=== PATIENT | male | born 1955 | race Caucasian/White ===

== ENCOUNTER 2016-10-24 22:33 | Emergency (ER) | payer BC ==
[2016-10-24] MEDS ORDERED: Aspirin 81 MG Tab.Chew ONE (22:42)
[2016-10-24] MEDS ORDERED: Metoprolol Tartrate 5 MG/5 ML SDV ONE ×3 (22:48→23:42)
[2016-10-24] MEDS ORDERED: Aspirin 81 MG Tab.Chew PO ONE (22:49)
[2016-10-24] MEDS ORDERED: Metoprolol Tartrate 5 MG in Sodium Chloride 0.9% 50 ML IV ONE (22:49)
--- NOTE | 2016-10-24 22:49 | EDM.PDOC ---
ED HPI GENERAL MEDICAL PROBLEM - General Stated Complaint: CHEST PAIN Time Seen by Provider: 10/24/16 22:33 Source of Information: Reports: Patient, RN Notes Reviewed, Significant Other ( Girlfriend) History Limitations: Reports: No Limitations - History of Present Illness INITIAL COMMENTS - FREE TEXT/NARRATIVE: The patient states that he developed retrosternal chest discomfort radiating across the left side of his chest to his left upper extremity, all the way down to the elbow, around 22:00. It was gradual in onset. He describes the character as similar to a pulled muscle. It is a discomfort, not a pain. He has not identified any modifiers, which is what prompted him to come to the ED. He had associated nausea, but no diaphoresis, dyspnea, or sense of impending doom. No prior similar symptoms. The ECG performed at the time of arrival demonstrated a STEMI in the inferior leads, with no reciprocal changes. The patient was given 4 baby aspirin, and I ordered 5 mg IV Lopressor. The patient's case was discussed with Dr. Real, Apprentice Architect at [facility], at 22:50. He recommended that we give the patient a 7500 unit bolus of heparin followed by the usual drip. The patient was to fly by helicopter to their facility. No TNKase unless the patient was delayed. Left Chest Pain Score (Numeric/FACES): 6 - Related Data Allergies Allergy/AdvReac Type Severity Reaction Status Date / Time No Known Allergies Allergy Verified 04/14/16 16:41 Past Medical History Cardiovascular History: Reports: High Cholesterol, Hypertension Gastrointestinal History: Reports: GERD Genitourinary History: Reports: Renal Calculus Endocrine/Metabolic History: Reports: Hypothyroidism - Past Surgical History HEENT Surgical History: Reports: Tonsillectomy Musculoskeletal Surgical History: Reports: ORIF (Left forearm) Social & Family History - Tobacco Use Smoking Status *Q: Never Smoker - Caffeine Use Caffeine Use: Reports: Coffee - Alcohol Use Alcohol Use History: Yes Alcohol Use Frequency: Socially - Recreational Drug Use Recreational Drug Use: No - Living Situation & Occupation Living situation: Reports: , with Significant Other (Girlfriend) 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) ED ROS GENERAL - Review of Systems Review Of Systems: See Below Constitutional: Reports: No Symptoms HEENT: Reports: No Symptoms Respiratory: Reports: No Symptoms Cardiovascular: Reports: No Symptoms Endocrine: Reports: No Symptoms GI/Abdominal: Reports: No Symptoms : Reports: No Symptoms Musculoskeletal: Reports: No Symptoms Skin: Reports: No Symptoms Neurological: Reports: No Symptoms Psychiatric: Reports: No Symptoms Hematologic/Lymphatic: Reports: No Symptoms Immunologic: Reports: No Symptoms ED EXAM, GENERAL - Physical Exam Exam: See Below Exam Limited By: No Limitations General Appearance: Alert, WD/WN, No Apparent Distress Eye Exam: Bilateral Eye: Normal Inspection Ears: Normal External Exam, Hearing Grossly Normal Nose: Normal Inspection, No Blood Throat/Mouth: Normal Inspection, Normal Lips, Normal Voice, No Airway Compromise Head: Atraumatic, Normocephalic Neck: Normal Inspection, Full Range of Motion Respiratory/Chest: No Respiratory Distress, Lungs Clear, Normal Breath Sounds, No Accessory Muscle Use, Chest Non-Tender Cardiovascular: Normal Peripheral Pulses, Regular Rate, Rhythm, No Gallop, No JVD, No Murmur, No Rub Peripheral Pulses: 4+: Radial (L), Radial (R) GI/Abdominal: Normal Bowel Sounds, Soft, Non-Tender, No Organomegaly, No Distention, No Abnormal Bruit, No Mass (Male) Exam: Deferred Rectal (Males) Exam: Deferred Back Exam: Normal Inspection, Full Range of Motion, NT Extremities: Normal Inspection, Normal Range of Motion, No Pedal Edema, Normal Capillary Refill Neurological: Alert, Oriented, Normal Cognition, No Motor/Sensory Deficits Psychiatric: Normal Affect Skin Exam: Warm, Dry, Intact, Normal Color, No Rash Lymphatic: No Adenopathy ED CARDIOLOGY PROCEDURES - Endotracheal Intubation Time of Intubation: 23:16 ET Intubation Indication: Airway Protection Preparation: Suction, Balloon Tested, BVM Set Up, Difficult Airway Equip Pre-Oxygenation: Assisted With BVM, 100% FiO2 Anesthesia Meds: Propofol Placement: Orotracheal, Cuffed, Uncomplicated Placement Cords Visualized: Yes, Grade 3 ETT Size In mm: 8.0 Number of Attempts: 1 Confirmed By: CO2 Indicator, Bilateral Breath Sounds, Chest Xray Tube Secured By: By RT EKG INTERPRETATION EKG Date: 10/24/16 Time: 22:35 Rhythm: NSR Rate (Beats/Min): 62 [place]: Normal P-Wave: Present QRS: Wide (Nonspecific intraventricular conduction delay) ST-T: Elevated (II, III, aVF) QT: Normal Comparison: NA - No Prior EKG EKG Interpretation Comments: Second ECG 10/24/2016 at 23:22 demonstrates normal sinus rhythm at 97 bpm. Inferior STEMI. Single PVC. Course - Vital Signs Last Recorded V/S: Last Vital Signs Temp 36.3 C 10/24/16 22:52 Pulse 58 L 10/24/16 22:52 Resp 14 10/24/16 22:52 BP 174/114 H 10/24/16 22:52 Pulse Ox 96 10/24/16 22:52 - Orders/Labs/Meds Orders: Active Orders 24 hr Category Date Time Status EKG Documentation Completion [RC] STAT Care 10/24/16 23:15 Active Chest 1V Frontal [CR] Stat Exams 10/24/16 22:40 Taken Chest 1V Frontal [CR] Stat Exams 10/24/16 23:10 Taken Labs: Laboratory Tests 10/24/16 10/24/16 10/24/16 Range/Units 22:40 22:40 22:40 WBC 9.20 H (4.23-9.07) K/mm3 RBC 4.68 (4.63-6.08) M/mm3 Hgb 15.0 (13.7-17.5) gm/L Hct 43.1 (40.1-51.0) % MCV 92.1 (79.0-92.2) fl MCH 32.1 (25.7-32.2) pg MCHC 34.8 (32.2-35.5) g/dl RDW Std Deviation 41.6 (35.1-43.9) fL Plt Count 202 (163-337) K/mm3 MPV 11.8 (9.4-12.3) fl Neutrophils % (Manual) 44 (40-60) % Band Neutrophils % 0 (0-10) % Lymphocytes % (Manual) 29 (20-40) % Atypical Lymphs % 16 % Monocytes % (Manual) 10 (2-10) % Eosinophils % (Manual) 1 (0.8-7.0) % Basophils % (Manual) 0 L (0.2-1.2) Platelet Estimate Adequate Plt Morphology Comment Normal Anisocytosis 1+ slight Microcytosis 1+ slight Macrocytosis 1+ slight RBC Morph Comment Abnormal PT 10.0 (8.0-13.0) SECONDS INR 0.92 APTT 22 (22-36) SECONDS D-Dimer, Quantitative 0.33 (0.19-0.59) mg/L Sodium 139 (136-145) mEq/L Potassium 3.3 L (3.5-5.1) mEq/L Chloride 102 (98-107) mEq/L Carbon Dioxide 31 (21-32) mEq/L Anion Gap 9.3 (5-15) BUN 17 (7-18) mg/dL Creatinine 1.3 (0.7-1.3) mg/dL Est Cr Clr Drug Dosing 66.32 mL/min Estimated GFR (MDRD) 56 (>60) mL/min BUN/Creatinine Ratio 13.1 L (14-18) Glucose 130 H (74-106) mg/dL Calcium 9.0 (8.5-10.1) mg/dL Total Bilirubin 0.6 (0.2-1.0) mg/dL AST 30 (15-37) U/L ALT 53 (16-63) U/L Alkaline Phosphatase 65 (46-116) U/L Troponin I < 0.017 (0.00-0.056) ng/mL B-Natriuretic Peptide (0-100) pg/mL Total Protein 7.8 (6.4-8.2) g/dl Albumin 4.0 (3.4-5.0) g/dl Globulin 3.8 gm/dL Albumin/Globulin Ratio 1.1 (1-2) // Range/Units 22:40 WBC (4.23-9.07) K/mm3 RBC (4.63-6.08) M/mm3 Hgb (13.7-17.5) gm/L Hct (40.1-51.0) % MCV (79.0-92.2) fl MCH (25.7-32.2) pg MCHC (32.2-35.5) g/dl RDW Std Deviation (35.1-43.9) fL Plt Count (163-337) K/mm3 MPV (9.4-12.3) fl Neutrophils % (Manual) (40-60) % Band Neutrophils % (0-10) % Lymphocytes % (Manual) (20-40) % Atypical Lymphs % % Monocytes % (Manual) (2-10) % Eosinophils % (Manual) (0.8-7.0) % Basophils % (Manual) (0.2-1.2) Platelet Estimate Plt Morphology Comment Anisocytosis Microcytosis Macrocytosis RBC Morph Comment PT (8.0-13.0) SECONDS INR APTT (22-36) SECONDS D-Dimer, Quantitative (0.19-0.59) mg/L Sodium (136-145) mEq/L Potassium (3.5-5.1) mEq/L Chloride (98-107) mEq/L Carbon Dioxide (21-32) mEq/L Anion Gap (5-15) BUN (7-18) mg/dL Creatinine (0.7-1.3) mg/dL Est Cr Clr Drug Dosing mL/min Estimated GFR (MDRD) (>60) mL/min BUN/Creatinine Ratio (14-18) Glucose (74-106) mg/dL Calcium (8.5-10.1) mg/dL Total Bilirubin (0.2-1.0) mg/dL AST (15-37) U/L ALT (16-63) U/L Alkaline Phosphatase (46-116) U/L Troponin I (0.00-0.056) ng/mL B-Natriuretic Peptide 16 (0-100) pg/mL Total Protein (6.4-8.2) g/dl Albumin (3.4-5.0) g/dl Globulin gm/dL Albumin/Globulin Ratio (1-2) Meds: Medications Discontinued Medications Generic Name Dose Route Start Last Admin Trade Name Freq PRN Reason Stop Dose Admin Aspirin Confirm 10/24/16 22:42 10/24/16 22:51 Aspirin Administered 10/24/16 22:43 Not Given Dose 324 mg .ROUTE .STK-MED ONE Aspirin 324 mg 10/24/16 22:49 Aspirin PO 10/24/16 22:50 ONETIME ONE Heparin Sodium (Porcine) Confirm 10/24/16 23:29 Heparin Sodium Administered 10/24/16 23:30 Dose 5,000 units .ROUTE .STK-MED ONE Heparin Sodium (Porcine) Confirm 10/24/16 23:30 Heparin Sodium Administered 10/24/16 23:31 Dose 5,000 units .ROUTE .STK-MED ONE Metoprolol Tartrate 5 mg/ 55 mls @ 100 mls/hr 10/24/16 22:49 Sodium Chloride IV 10/24/16 23:21 ONETIME ONE Sodium Chloride Confirm 10/24/16 22:52 Normal Saline Administered 10/24/16 22:53 Dose 1,000 mls @ as directed .ROUTE .STK-MED ONE Heparin Sodium/Dextrose Confirm 10/24/16 23:26 Heparin 25,000 Units In D5w 500 Ml Administered 10/24/16 23:27 Dose 500 mls @ as directed .ROUTE .STK-MED ONE Lorazepam Confirm 10/24/16 23:03 Ativan Administered 10/24/16 23:04 Dose 2 mg .ROUTE .STK-MED ONE Metoprolol Tartrate Confirm 10/24/16 22:48 Lopressor Administered 10/24/16 22:49 Dose 5 mg .ROUTE .STK-MED ONE Metoprolol Tartrate Confirm 10/24/16 23:42 Lopressor Administered 10/24/16 23:43 Dose 5 mg .ROUTE .STK-MED ONE Tenecteplase Confirm 10/24/16 22:51 Tnkase Administered 10/24/16 22:52 Dose 50 mg .ROUTE .STK-MED ONE - Radiology Interpretation Free Text/Narrative:: Portal chest radiograph is of limited quality. Tip of the ET tube appears to be approximately 2 cm above the levy. An OG tube tip is in the stomach via the esophagus. The cardiac silhouette is at the upper limits of normal. The mediastinum may be widened. Bilateral hilar fullness. Focal infiltrate cannot be excluded. Formal read per the Radiologist pending. - Re-Assessments/Exams Free Text/Narrative Re-Assessment/Exam: Immediately after my conversation with Dr. Real, a CODE BLUE was called on the patient. The patient developed ventricular fibrillation while his Lopressor was being given - he received only 2.5 mg before he coded. Chest compressions were started immediately. 1 mg of epinephrine was given. TNKase was ordered. The patient was defibrillated three times, 150 J, 200 J, and 200 J into normal sinus rhythm. He subsequently developed torsade de pointes. He was cardioverted with 150 J. A 2 g mag rider was ordered. The patient woke up and was restless. Ativan 1 mg was ordered. Amiodarone 300 mg bolus was started. The previously ordered T and K was given. Flight was present and indicated that they needed the patient to be intubated prior to transport. Propofol 40 mg was given IV with inadequate sedation, therefore an additional 100 mg was given, with adequate sedation. The patient was intubated with one attempt per [place]. MAC 3 blade. 8.0 ET tube to 21 cm at the incisors. An OG tube was placed. Proper placement of both tubes confirmed with CO2 detection and subsequent portable chest radiograph. Shortly after intubation, the patient became restless again. Versed and fentanyl drips were started per flight. Additional propofol 50 mg was given. A second ECG was performed. The previously ordered heparin bolus of 7500 units was given, followed by a heparin drip. The patient was given rocuronium. A Soto catheter was placed. An additional 5 mg Lopressor was given. The OG tube appear to be clogged, therefore was removed. The events were discussed with Dr. Real at 23:39. He requested only that flight contact [facility] with their ETA, once known. The patient left the ED with flight at 23:53. 10/25/16 02:23 Critical care time on this patient 60 minutes. Departure - Departure Time of Disposition: 23:53 Disposition: DC/Tfer to Acute Hospital 02 Reason for Transfer *Q: Primary PCI Indicated Condition: Critical Clinical Impression: ST elevation myocardial infarction (STEMI) of inferior wall, Ventricular fibrillation - My Orders Last 24 Hours: My Active Orders 10/24/16 22:40 Chest 1V Frontal [CR] Stat 10/24/16 23:10 Chest 1V Frontal [CR] Stat 10/24/16 23:15 EKG Documentation Completion [RC] STAT - Assessment/Plan Last 24 Hours: My Active Orders 10/24/16 22:40 Chest 1V Frontal [CR] Stat 10/24/16 23:10 Chest 1V Frontal [CR] Stat 10/24/16 23:15 EKG Documentation Completion [RC] STAT
[2016-10-24] MEDS ORDERED: Propofol 200 MG/20 ML SDV ONE ×2 (22:51→23:30)
[2016-10-24] MEDS ORDERED: Heparin Sodium 5,000 Units/ML Vial ONE ×4 (22:51→23:30)
[2016-10-24] MEDS ORDERED: Amiodarone/Dextrose,Iso-Osmotic 360 MG/200 ML Premix Bag ONE (22:51)
[2016-10-24] MEDS ORDERED: Tenecteplase 50 MG Kit ONE ×2 (22:51)
[2016-10-24] MEDS ORDERED: EPINEPHrine 1:10,000 1 MG/10 ML Syringe ONE (22:51)
[2016-10-24] MEDS ORDERED: Amiodarone 150 MG/3 ML SDV ONE (22:51)
[2016-10-24] MEDS ORDERED: Succinylcholine/Normal Saline 100 MG/5 ML Syringe ONE (22:51)
[2016-10-24] MEDS ORDERED: LORazepam 2 MG/ML MDV ONE ×2 (22:51→23:03)
[2016-10-24] MEDS ORDERED: Sodium Chloride 0.9% 1,000 ML IV ONE (22:52)
[2016-10-24] MEDS ORDERED: Sodium Chloride 0.9% 1,000 ML ONE (22:52)
[2016-10-24] MEDS ORDERED: Magnesium Sulfate/Water 100 ML IV ONE (22:52)
[2016-10-24 22:55] VITALS: BP 174/114
[2016-10-24] MEDS ORDERED: Heparin Sodium/D5W 500 ML ONE (23:26)
--- NOTE | 2016-10-25 10:11 | CR ---
Chest: Portable view of the chest was obtained. Comparison: Previous chest x-ray performed earlier on the same day (10:46 PM). Nasogastric tube is seen. Tip lies within the stomach antrum. Endotracheal tube is seen with tip lying at the level of the clavicles. Heart is within normal limits for portable technique. Upper mediastinum is accentuated and felt to be due to portable technique. Minimal atelectasis is seen within the left mid and lower lung. Lungs otherwise are clear. Impression: 1. Endotracheal tube and nasogastric tube felt to be satisfactory in position. 2. Other incidental findings as described above. Diagnostic code #3
--- NOTE | 2016-10-25 10:11 | CR ---
Chest: Portable view of the chest was obtained. Comparison: No previous chest x-ray. Heart size and mediastinum are within normal limits for portable technique. Lungs are clear. Bony structures are grossly intact. Impression: 1. Nothing acute is identified on portable chest x-ray. Diagnostic code #1
== END 2016-10-25 00:02 ==
LOC: JD.ED 22:33
DX: I21.19 ST elevation (STEMI) myocardial infarction involving other coronary artery of inferior wall (principal); R11.0 Nausea; I49.01 Ventricular fibrillation; E78.00 Pure hypercholesterolemia, unspecified; I10 Essential (primary) hypertension; K21.9 Gastro-esophageal reflux disease without esophagitis; E03.9 Hypothyroidism, unspecified; Z98.890 Other specified postprocedural states
CPT/HCPCS: 31500; 36415; 51702; 71010; 80053; 83880; 84484; 85025; 85379; 85610; 85730; 92950; 92960; 93005; 96365; 96368; 96375; 96376; 99291; J0171; J0282; J0330; J1644; J2060; J3101; J3475; J7040; J7050; J2704; J3490

== ENCOUNTER 2018-01-02 09:54 | Emergency (ER) | payer BC ==
--- NOTE | 2018-01-02 10:32 | EDM.PDOC ---
ED HPI GENERAL MEDICAL PROBLEM - General Chief Complaint: Neurological Problem Stated Complaint: DIZZINESS/NAUSEA Time Seen by Provider: 01/02/18 10:07 Source of Information: Reports: Patient, Family History Limitations: Reports: No Limitations - History of Present Illness INITIAL COMMENTS - FREE TEXT/NARRATIVE: 62-year-old male with a history of coronary artery disease prior AK requiring one stent in September 2016 presenting with a chief complaint of palpitations, lightheadedness, ROYAL and headache. Patient's symptoms started on Tuesday. At times he'll notice a racing heartbeat. He also becomes lightheaded. He believes he symptoms are provoked by exertion. He's had no associated chest pain. Patient 's symptoms with his last heart attack were similar in nature. Patient has no history of atrial fibrillation he is not currently anticoagulated. - Related Data Allergies Allergy/AdvReac Type Severity Reaction Status Date / Time No Known Allergies Allergy Verified 01/02/18 10:03 Home Meds: Home Meds Aspirin [[place] Aspirin] 81 mg PO DAILY 11/09/16 [History] Levothyroxine 112 mcg PO ACBREAKFAST 11/09/16 [History] atorvaSTATin [Lipitor] 40 mg PO ONETIME 11/09/16 [History] Clopidogrel [Plavix] 75 mg PO DAILY 11/30/16 [History] amLODIPine [Norvasc] 10 mg PO DAILY 12/02/16 [History] Lisinopril 40 mg PO DAILY 01/02/18 [History] Pantoprazole [ProTONIX] 40 mg PO DAILY 01/02/18 [History] Ubidecarenone [Coq-10] 100 mg PO DAILY 01/02/18 [History] Past Medical History Cardiovascular History: Reports: High Cholesterol, Hypertension, AK, Stents Other Cardiovascular History: 1 stent placed September 2016 Gastrointestinal History: Reports: GERD Genitourinary History: Reports: Renal Calculus Endocrine/Metabolic History: Reports: Hypothyroidism Other Endocrine/Metabolic History: unsure if hypo or hyper thyroidism - Past Surgical History HEENT Surgical History: Reports: Tonsillectomy Musculoskeletal Surgical History: Reports: ORIF Social & Family History - Tobacco Use Smoking Status *Q: Never Smoker - Caffeine Use Caffeine Use: Reports: Coffee - Alcohol Use Days Per Week of Alcohol Use: 2 Number of Drinks Per Day: 2 Total Drinks Per Week: 4 - Recreational Drug Use Recreational Drug Use: No - Living Situation & Occupation Living situation: Reports: , with Significant Other (Girlfriend) 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 Denies: Diaphoresis HEENT: Reports: No Symptoms Respiratory: Reports: Shortness of Breath Cardiovascular: Reports: Dyspnea on Exertion, Lightheadedness, Palpitations. Denies: Chest Pain GI/Abdominal: Reports: No Symptoms : Reports: No Symptoms Musculoskeletal: Reports: No Symptoms Skin: Reports: No Symptoms Neurological: Reports: Headache Psychiatric: Reports: No Symptoms ED EXAM, GENERAL - Physical Exam Exam: See Below Exam Limited By: No Limitations General Appearance: Alert, No Apparent Distress Head: Atraumatic, Normocephalic Respiratory/Chest: No Respiratory Distress, Lungs Clear, Normal Breath Sounds Cardiovascular: Other (Regular rate, irregularly irregular rhythm no murmurs rubs or gallops) GI/Abdominal: Soft, Non-Tender, Other (Abdomen is mildly distended with no tenderness to palpation no rebound or guarding) Back Exam: Normal Inspection, Full Range of Motion Extremities: Normal Inspection, Normal Range of Motion, Non-Tender, No Pedal Edema Neurological: Alert, Oriented, CN II-XII Intact, No Motor/Sensory Deficits Psychiatric: Normal Affect, Normal Mood Skin Exam: Warm, Dry, Intact EKG INTERPRETATION EKG Date: 01/02/18 Time: 10:13 Rhythm: A-Fib Rate (Beats/Min): 86 [place]: Normal P-Wave: Absent QRS: Normal ST-T: Normal QT: Normal Course - Vital Signs Last Recorded V/S: Last Vital Signs Temp 37.3 C 01/02/18 10:03 Pulse 95 01/02/18 10:03 Resp 18 01/02/18 10:03 BP 165/100 H 01/02/18 10:03 Pulse Ox 96 01/02/18 10:03 - Orders/Labs/Meds Orders: Active Orders 24 hr Category Date Time Status EKG Documentation Completion [RC] STAT Care 01/02/18 10:12 Active Chest 1V Frontal [CR] Stat Exams 01/02/18 10:12 Taken PTT,PARTIAL THROMBOPLSTIN TIME [COAG] Stat Lab 01/02/18 11:59 Ordered Heparin Sodium/D5W [Heparin 25,000 Units in D5W 500 ML] Med 01/02/18 12:00 Ordered 25,000 units in 500 ml IV TITRATE Medication Orders Heparin Sodium/Dextrose (Heparin 25,000 Units In D5w 500 Ml) 25,000 units in 500 mls @ 20 mls/hr IV TITRATE JOEY; Protocol Labs: Laboratory Tests 01/02/18 01/02/18 Range/Units 10:15 10:15 WBC 8.19 (4.23-9.07) K/mm3 RBC 5.19 (4.63-6.08) M/mm3 Hgb 16.0 (13.7-17.5) gm/L Hct 46.8 (40.1-51.0) % MCV 90.2 (79.0-92.2) fl MCH 30.8 (25.7-32.2) pg MCHC 34.2 (32.2-35.5) g/dl RDW Std Deviation 40.7 (35.1-43.9) fL Plt Count 151 L (163-337) K/mm3 MPV 11.8 (9.4-12.3) fl Neut % (Auto) 73.6 H (34.0-67.9) % Lymph % (Auto) 19.2 L (21.8-53.1) % [place] % (Auto) 6.1 (5.3-12.2) % Eos % (Auto) 0.4 L (0.8-7.0) Baso % (Auto) 0.6 (0.1-1.2) % Neut # (Auto) 6.03 H (1.78-5.38) K/mm3 Lymph # (Auto) 1.57 (1.32-3.57) K/mm3 [place] # (Auto) 0.50 (0.30-0.82) K/mm3 Eos # (Auto) 0.03 L (0.04-0.54) K/mm3 Baso # (Auto) 0.05 (0.01-0.08) K/mm3 Manual Slide Review Normal smear Sodium 137 (136-145) mEq/L Potassium 4.2 (3.5-5.1) mEq/L Chloride 101 (98-107) mEq/L Carbon Dioxide 29 (21-32) mEq/L Anion Gap 11.2 (5-15) BUN 13 (7-18) mg/dL Creatinine 1.3 (0.7-1.3) mg/dL Est Cr Clr Drug Dosing 64.67 mL/min Estimated GFR (MDRD) 56 (>60) mL/min BUN/Creatinine Ratio 10.0 L (14-18) Glucose 145 H (80-115) mg/dL Calcium 8.8 (8.5-10.1) mg/dL Total Bilirubin 1.3 H (0.2-1.0) mg/dL AST 26 (15-37) U/L ALT 46 (16-63) U/L Alkaline Phosphatase 63 (46-116) U/L Troponin I < 0.017 (0.00-0.056) ng/mL Total Protein 7.4 (6.4-8.2) g/dl Albumin 3.8 (3.4-5.0) g/dl Globulin 3.6 gm/dL Albumin/Globulin Ratio 1.1 (1-2) Meds: Medications Generic Name Dose Route Start Last Admin Trade Name Freq PRN Reason Stop Dose Admin Heparin Sodium/Dextrose 25,000 units in 500 mls @ 20 mls/hr 01/02/18 12:00 Heparin 25,000 Units In D5w 500 Ml IV TITRATE JOEY Protocol Discontinued Medications Generic Name Dose Route Start Last Admin Trade Name Freq PRN Reason Stop Dose Admin Heparin Sodium (Porcine) 7,000 units 01/02/18 11:59 Heparin Sodium IVPUSH 01/02/18 12:00 .BOLUS ONE - Re-Assessments/Exams Free Text/Narrative Re-Assessment/Exam: 01/02/18 10:32 62-year-old male history of AK with one stent presenting with palpitations, lightheadedness and some dyspnea with exertion. On initial evaluation the patient had normal vital signs. Physical exam was notable for an irregularly irregular pulse. EKG demonstrates no identifiable P waves consistent with atrial fibrillation. Patient states he has no history of this. He is not anticoagulated and is not on any rate or rhythm control medication. Patient's presentation today since similar to his prior presentation when he has AK. Patient Murmurs last stress test. Plantar now is to obtain a CMP, CBC, troponin and chest x-ray. Patient will likely need inpatient admission for provocative testing as well as new echocardiogram and needs to be started on anticoagulation. Free Text/Narrative Re-Assessment/Exam: 01/02/18 11:[address] Mc at [facility] who accepted the patient as transfer. Patient has [id number] Score of 2 making him moderate high risk for stroke, will initiate anti-coagulation here in the ED with heparin drip. Chest. 2009;137(2):263-72. doi: [email or web address]. Epub 2008Jan 16. Refining clinical risk stratification for predicting stroke and thromboembolism in atrial fibrillation using a novel risk factor-based approach: the euro heart survey on atrial fibrillation. Lip GY1, Nipedro R, Pisters R, Marvin DA, Crinohemi HJ. Furthermore, this patient has a HEART score of 6 making his risk of major adverse cardiac event 12-16.6% in the next 6 weeks. He requires admission for provocative testing and further risk stratification. Crit Pathw Cardiol. 2009;9(3):164-9. doi: 10.1097/[id number]. Chest pain in the emergency room: a multicenter validation of the HEART Score. Zoraida BE1, Fareed AJ, Ama JESENIA, Tomas TP, van eliazar Javed F, Tomas EG, Brendan SH, kellie Fowler RM, Anna PA. 01/02/18 12:12 At this time I feel the patient's symptoms are an anginal equivalent and the recent onset of them represent unstable angina. Departure - Departure Time of Disposition: 12:09 Disposition: DC/Tfer to Acute Hospital 02 Reason for Transfer *Q: Other (stress testing) Condition: Fair Clinical Impression: Unstable angina Atrial fibrillation Qualifiers: Atrial fibrillation type: unspecified Qualified Code(s): I48.91 - Unspecified atrial fibrillation Referrals: Jay Johnson MD [Primary Care Provider] - Forms: ED Department Discharge - My Orders Last 24 Hours: My Active Orders 01/02/18 10:12 EKG Documentation Completion [RC] STAT Chest 1V Frontal [CR] Stat 01/02/18 11:59 PTT,PARTIAL THROMBOPLSTIN TIME [COAG] Stat 01/02/18 12:00 Heparin Sodium/D5W [Heparin 25,000 Units in D5W 500 ML] 25,000 units in 500 ml IV TITRATE - Assessment/Plan Last 24 Hours: My Active Orders 01/02/18 10:12 EKG Documentation Completion [RC] STAT Chest 1V Frontal [CR] Stat 01/02/18 11:59 PTT,PARTIAL THROMBOPLSTIN TIME [COAG] Stat 01/02/18 12:00 Heparin Sodium/D5W [Heparin 25,000 Units in D5W 500 ML] 25,000 units in 500 ml IV TITRATE
[2018-01-02] MEDS ORDERED: Heparin Sodium 5,000 Units/ML Vial IVPUSH ONE ×2 (11:59→12:31)
[2018-01-02] MEDS ORDERED: Heparin Sodium/D5W 25,000 UNITS/500 ML BAG IV SCH (12:00)
[2018-01-02 13:09] VITALS: BP 153/109
--- NOTE | 2018-01-03 07:23 | CR ---
Chest: Portable view of the chest was obtained. Comparison: Prior chest x-ray 10/24/16. Heart size is within normal limits for portable technique. Tortuous thoracic aorta is seen. Lungs are clear with no acute parenchymal change. Bony structures are unremarkable. Impression: 1. Nothing acute is seen on portable chest x-ray. Diagnostic code #2
== END 2018-01-02 12:56 ==
LOC: JD.ED 09:54
DX: I48.91 Unspecified atrial fibrillation (principal); I20.0 Unstable angina; E03.9 Hypothyroidism, unspecified; I10 Essential (primary) hypertension; I25.2 Old myocardial infarction; Z79.82 Long term (current) use of aspirin; Z79.899 Other long term (current) drug therapy; E78.00 Pure hypercholesterolemia, unspecified
CPT/HCPCS: 36415; 71045; 80053; 84484; 85025; 85730; 93005; 96365; 96376; 99285; J1644; 93010

== ENCOUNTER 2018-05-23 09:04 | Emergency (ER) | payer BC ==
[2018-05-23] MEDS ORDERED: Sodium Chloride 0.9% 10 ML Syringe FLUSH PRN (09:54)
[2018-05-23] MEDS ORDERED: Sodium Chloride 0.9% 500 ML IV ONE (09:57)
--- NOTE | 2018-05-23 10:23 | EDM.PDOC ---
ED HPI GENERAL MEDICAL PROBLEM - General Chief Complaint: Cardiovascular Problem Stated Complaint: LOW ENERGY Time Seen by Provider: 05/23/18 09:47 Source of Information: Reports: Patient History Limitations: Reports: No Limitations - History of Present Illness INITIAL COMMENTS - FREE TEXT/NARRATIVE: The patient presents from pulmonary\cardiac rehab for generalized weakness and not feeling good. He was at cardiac rehab for a history of a STEMI in September of 2016 and cardiac arrest requiring stents and ne onset A-fib in December 2017. He said they cardioverted him out of the A-fib. He is on eliquis. The past couple days he has not felt well with generalized weakness but he denies chest pain, shortness of breath, nausea or vomiting. He did not look well today when he was working out. He was diaphoretic and pale. He feels better now. His initial blood pressure was a little low in the upper 80s. He says the only medication change was his levothyroxine was increased from 112 to 125. That was done last week by Dr Johnson. His vital signs at cardiac rehab looked good. His oxygen saturations were normal, blood pressure looked good and his heart rate was not high. Here he is in A-fib but no fast rate. He denies fever , chills, cough, congestion, runny nose, abdominal pain, nausea or vomiting. 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: Reports: Acetaminophen - Related Data Allergies Allergy/AdvReac Type Severity Reaction Status Date / Time No Known Allergies Allergy Verified 05/23/18 09:17 Home Meds: Home Meds Aspirin [Imperial Aspirin] 81 mg PO DAILY 11/09/16 [History] Levothyroxine 125 mcg PO ACBREAKFAST 11/09/16 [History] atorvaSTATin [Lipitor] 40 mg PO ONETIME 11/09/16 [History] amLODIPine [Norvasc] 10 mg PO DAILY 12/02/16 [History] Lisinopril 40 mg PO DAILY 01/02/18 [History] Pantoprazole [ProTONIX] 40 mg PO ACBREAKFAST 01/02/18 [History] Ubidecarenone [Coq-10] 100 mg PO DAILY 01/02/18 [History] Apixaban [Eliquis] 5 mg PO BID 05/23/18 [History] Metoprolol Tartrate 12.5 mg PO BID 05/23/18 [History] Past Medical History Cardiovascular History: Reports: Afib, Arrhythmia, High Cholesterol, Hypertension, NC, Stents Other Cardiovascular History: 1 stent placed September 2016, currently on eliquis, has hx of intermittent atrial fibrillation Gastrointestinal History: Reports: GERD Genitourinary History: Reports: Renal Calculus Endocrine/Metabolic History: Reports: Hypothyroidism Other Endocrine/Metabolic History: unsure if hypo or hyper thyroidism - Past Surgical History HEENT Surgical History: Reports: Tonsillectomy Cardiovascular Surgical History: Reports: Carotid Stents Musculoskeletal Surgical History: Reports: ORIF Social & Family History - Family History Family Medical History: Noncontributory - Tobacco Use Smoking Status *Q: Never Smoker - Caffeine Use Caffeine Use: Reports: Coffee Other Caffeine Use: drinks decaf coffee - Recreational Drug Use Recreational Drug Use: No - Living Situation & Occupation Living situation: Reports: , with Significant Other (Girlfriend) 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 Denies: Fever, Chills HEENT: Reports: No Symptoms Respiratory: Reports: No Symptoms Cardiovascular: Reports: No Symptoms Endocrine: Reports: No Symptoms GI/Abdominal: Reports: No Symptoms : Reports: No Symptoms Musculoskeletal: Reports: Hand Pain Skin: Reports: Diaphoresis ED EXAM, GENERAL - Physical Exam Exam: See Below Exam Limited By: No Limitations General Appearance: Alert, No Apparent Distress Ears: Normal External Exam Nose: Normal Inspection Head: Atraumatic, Normocephalic Neck: Normal Inspection Respiratory/Chest: No Respiratory Distress, Lungs Clear, Normal Breath Sounds Cardiovascular: Regular Rate, Rhythm, No Edema, No Murmur GI/Abdominal: Soft, Non-Tender, No Organomegaly, No Mass Extremities: Normal Inspection Neurological: Alert, Oriented, No Motor/Sensory Deficits EKG INTERPRETATION EKG Date: 05/23/18 Time: 09:11 Rhythm: A-Fib Rate (Beats/Min): 82 Ovando: LAD-Left Ovando Deviation QRS: Normal ST-T: Normal QT: Normal EKG Interpretation Comments: Q waves in inferior leads Course - Vital Signs Last Recorded V/S: Last Vital Signs Temp 97.4 F 05/23/18 09:08 Pulse 83 05/23/18 09:08 Resp 18 05/23/18 09:08 BP 114/89 05/23/18 09:08 Pulse Ox 97 05/23/18 09:08 - Orders/Labs/Meds Orders: Active Orders 24 hr Category Date Time Status Cardiac Monitoring [RC] . DIRECTED Care 05/23/18 09:54 Active EKG Documentation Completion [RC] STAT Care 05/23/18 09:54 Active Peripheral IV Care [RC] . DIRECTED Care 05/23/18 09:54 Active Sodium Chloride 0.9% [Saline Flush] Med 05/23/18 09:54 Active 10 ml FLUSH ASDIRECTED PRN Peripheral IV Insertion Adult [OM.PC] Stat Oth 05/23/18 09:54 Ordered Medication Orders Sodium Chloride (Saline Flush) 10 ml FLUSH ASDIRECTED PRN PRN Reason: Keep Vein Open Last Admin: 05/23/18 09:18 Dose: 10 ml Labs: Laboratory Tests 05/23/18 05/23/18 05/23/18 Range/Units 09:18 09:18 09:18 WBC 5.60 (4.23-9.07) K/mm3 RBC 5.44 (4.63-6.08) M/mm3 Hgb 17.1 (13.7-17.5) gm/L Hct 49.1 (40.1-51.0) % MCV 90.3 (79.0-92.2) fl MCH 31.4 (25.7-32.2) pg MCHC 34.8 (32.2-35.5) g/dl RDW Std Deviation 42.2 (35.1-43.9) fL Plt Count 225 (163-337) K/mm3 MPV 12.4 H (9.4-12.3) fl Neut % (Auto) 58.7 (34.0-67.9) % Lymph % (Auto) 32.5 (21.8-53.1) % [place] % (Auto) 5.7 (5.3-12.2) % Eos % (Auto) 2.0 (0.8-7.0) Baso % (Auto) 0.7 (0.1-1.2) % Neut # (Auto) 3.29 (1.78-5.38) K/mm3 Lymph # (Auto) 1.82 (1.32-3.57) K/mm3 [place] # (Auto) 0.32 (0.30-0.82) K/mm3 Eos # (Auto) 0.11 (0.04-0.54) K/mm3 Baso # (Auto) 0.04 (0.01-0.08) K/mm3 Sodium 144 (136-145) mEq/L Potassium 4.0 (3.5-5.1) mEq/L Chloride 106 (98-107) mEq/L Carbon Dioxide 26 (21-32) mEq/L Anion Gap 16.0 H (5-15) BUN 22 H (7-18) mg/dL Creatinine 1.2 (0.7-1.3) mg/dL Est Cr Clr Drug Dosing 70.06 mL/min Estimated GFR (MDRD) > 60 (>60) mL/min BUN/Creatinine Ratio 18.3 H (14-18) Glucose 133 H (80-115) mg/dL Calcium 9.6 (8.5-10.1) mg/dL Total Bilirubin 1.4 H (0.2-1.0) mg/dL AST 28 (15-37) U/L ALT 49 (16-63) U/L Alkaline Phosphatase 63 (46-116) U/L Troponin I < 0.017 (0.00-0.056) ng/mL Total Protein 7.6 (6.4-8.2) g/dl Albumin 3.9 (3.4-5.0) g/dl Globulin 3.7 gm/dL Albumin/Globulin Ratio 1.1 (1-2) Free T4 0.88 (0.76-1.46) ng/dL TSH 3rd Generation 14.625 H (0.358-3.74) uIU/mL Meds: Medications Generic Name Dose Route Start Last Admin Trade Name Freq PRN Reason Stop Dose Admin Sodium Chloride 10 ml 05/23/18 09:54 05/23/18 09:18 Saline Flush FLUSH 10 ml ASDIRECTED PRN Administration Keep Vein Open Discontinued Medications Generic Name Dose Route Start Last Admin Trade Name Freq PRN Reason Stop Dose Admin Sodium Chloride 500 mls @ 1,000 mls/hr 05/23/18 09:57 05/23/18 10:05 Normal Saline IV 05/23/18 10:26 1,000 mls/hr .BOLUS ONE Administration - Re-Assessments/Exams Free Text/Narrative Re-Assessment/Exam: 05/23/18 10:37 I ordered an IV NS 500 bolus, EKG, CXR and labs. His EKG shows A-fib with no acute changes. His CBC looks good. His anion gap was a little elevated at 16. His glucose was a little elevated at 133. His total hillary was a little elevated at 1.4. His troponin was normal. His TSH was very elevated at 14.625. I have ordered a free T4. 05/23/18 12:02 The free T4 is normal. He is not waiting an hour after taking the levothyroxine. I will have him try that and follow up with Dr Lemus. I called Dr Johnson to let him know. Departure - Departure Time of Disposition: 12:05 Disposition: Home, Self-Care 01 Condition: Good Clinical Impression: Generalized weakness Referrals: Jay Johnson MD [Primary Care Provider] - 1 Week Raffi Lemus MD [Ordering Only Provider] - 1 Week Forms: ED Department Discharge Additional Instructions: Try waiting an hour before eating after taking your levothyroxine. Follow up with Dr Lmeus and Dr Johnson. Please return if you are worse. - My Orders Last 24 Hours: My Active Orders 05/23/18 09:54 Cardiac Monitoring [RC] . DIRECTED EKG Documentation Completion [RC] STAT Peripheral IV Care [RC] . DIRECTED Sodium Chloride 0.9% [Saline Flush] 10 ml FLUSH ASDIRECTED PRN Peripheral IV Insertion Adult [OM.PC] Stat - Assessment/Plan Last 24 Hours: My Active Orders 05/23/18 09:54 Cardiac Monitoring [RC] . DIRECTED EKG Documentation Completion [RC] STAT Peripheral IV Care [RC] . DIRECTED Sodium Chloride 0.9% [Saline Flush] 10 ml FLUSH ASDIRECTED PRN Peripheral IV Insertion Adult [OM.PC] Stat
--- NOTE | 2018-05-23 10:48 | CR ---
Chest: Portable view of the chest was obtained. Comparison: Prior chest x-ray of 01/02/18. Heart size is normal. Tortuous thoracic aorta is seen. Lungs are clear. Bony structures are grossly intact. Impression: 1. Incidental findings. Nothing acute is appreciated on portable chest x-ray. Diagnostic code #2
[2018-05-23 12:21] VITALS: BP 123/99
== END 2018-05-23 12:15 | disposition home or self-care (01) ==
LOC: JD.ED 09:04
DX: R53.1 Weakness (principal); I25.2 Old myocardial infarction; E03.9 Hypothyroidism, unspecified; Z79.899 Other long term (current) drug therapy; Z79.82 Long term (current) use of aspirin
CPT/HCPCS: 36415; 71045; 80053; 84439; 84443; 84484; 85025; 93005; 96360; 99284; J7040; 93010; 99283

== ENCOUNTER 2023-11-24 09:19 | Day surgery (SDC) | payer BC, MEDICARE ==
[2023-11-24] MEDS: Polymyxin B/Trimethoprim 10 ML Bottle EYELF SCH (08:59)
[2023-11-24] MEDS: Brimonidine 0.2% Ophth Soln 5 ML Bottle EYELF SCH (09:01)
[2023-11-24] MEDS: Phenylephrine 2.5% Ophth Soln 2 ML Bot EYELF SCH (09:03)
[2023-11-24] MEDS: Tropicamide 1% Ophth Soln 3 ML Bottle EYELF SCH (09:05)
[2023-11-24] MEDS: Tetracaine HCl/PF 0.5% 4 ML Bottle EYEBOTH SCH (09:21)
[2023-11-24] MEDS: Lidocaine 1% PF 2 ML SDV INJECT SCH (09:33)
[2023-11-24] MEDS: Cefuroxime 10 MG/ML SYRINGE EYELF SCH (09:33)
[2023-11-24] MEDS: Pilocarpine 4% Ophth Soln 15 ML Bot EYELF SCH (09:34)
[2023-11-24 10:25] VITALS: BP 143/103; PULSE 76
== END 2023-11-24 10:20 | disposition home or self-care (01) ==
LOC: JD.SDS 09:19
PROVIDERS: ATTEND Ophthalmology
DX: H25.813 Combined forms of age-related cataract, bilateral (principal); I10 Essential (primary) hypertension; E78.2 Mixed hyperlipidemia; K21.9 Gastro-esophageal reflux disease without esophagitis; E03.9 Hypothyroidism, unspecified; I25.2 Old myocardial infarction; Z95.5 Presence of coronary angioplasty implant and graft; Z79.82 Long term (current) use of aspirin; Z79.890 Hormone replacement therapy; Z79.01 Long term (current) use of anticoagulants; Z79.899 Other long term (current) drug therapy
CPT/HCPCS: 66984; A9270; J0697; J3490

== ENCOUNTER 2023-12-22 12:22 | Day surgery (SDC) | payer MEDICARE ==
[2023-12-22] MEDS: Polymyxin B/Trimethoprim 10 ML Bottle EYERT SCH (12:42)
[2023-12-22] MEDS: Brimonidine 0.2% Ophth Soln 5 ML Bottle EYERT SCH (12:49)
[2023-12-22] MEDS: Phenylephrine 2.5% Ophth Soln 2 ML Bot EYERT SCH (12:53)
[2023-12-22] MEDS: Tropicamide 1% Ophth Soln 3 ML Bottle EYERT SCH (12:59)
[2023-12-22] MEDS: Tetracaine HCl/PF 0.5% 4 ML Bottle EYEBOTH SCH (14:00)
[2023-12-22] MEDS: Lidocaine 1% PF 2 ML SDV INJECT SCH (14:22)
[2023-12-22] MEDS: Cefuroxime 10 MG/ML SYRINGE EYERT SCH (14:34)
[2023-12-22] MEDS: Pilocarpine 4% Ophth Soln 15 ML Bot EYERT SCH (14:34)
[2023-12-22 14:52] VITALS: BP 154/120; PULSE 75
== END 2023-12-22 14:44 | disposition home or self-care (01) ==
LOC: JD.SDS 12:22
PROVIDERS: ATTEND Ophthalmology
DX: H25.811 Combined forms of age-related cataract, right eye (principal); H52.31 Anisometropia; H40.1131 Primary open-angle glaucoma, bilateral, mild stage; H31.092 Other chorioretinal scars, left eye; H02.831 Dermatochalasis of right upper eyelid; H02.834 Dermatochalasis of left upper eyelid; H57.813 Brow ptosis, bilateral; H16.103 Unspecified superficial keratitis, bilateral; H16.223 Keratoconjunctivitis sicca, not specified as Sjogren's, bilateral; H43.813 Vitreous degeneration, bilateral; I10 Essential (primary) hypertension; E78.2 Mixed hyperlipidemia; K21.9 Gastro-esophageal reflux disease without esophagitis; Z79.899 Other long term (current) drug therapy
CPT/HCPCS: 66984; A9270; J0697; J3490; V2632

== ENCOUNTER 2024-02-25 17:15 | Emergency (ER) | payer MEDICARE ==
[2024-02-25] MEDS: Triamcinolone Acetonide 40 MG/ML 1 ML SDV INJECT ONE (19:24)
[2024-02-25] MEDS: Bupivacaine 0.25% 30 ML SDV INJECT ONE (19:24)
[2024-02-25] MEDS: Bupivacaine 0.25% 10 ML SDV INJECT ONE (19:24)
[2024-02-25] MEDS: Lidocaine 1% 10 ML MDV INJECT ONE (19:24)
[2024-02-25 20:12] VITALS: BP 135/95; PULSE 88
== END 2024-02-25 20:10 | disposition home or self-care (01) ==
LOC: JD.ED 17:15
DX: M17.11 Unilateral primary osteoarthritis, right knee (principal); M25.461 Effusion, right knee; I48.91 Unspecified atrial fibrillation; E78.00 Pure hypercholesterolemia, unspecified; I10 Essential (primary) hypertension; I25.2 Old myocardial infarction; Z95.5 Presence of coronary angioplasty implant and graft; K21.9 Gastro-esophageal reflux disease without esophagitis; Z79.899 Other long term (current) drug therapy; Z79.82 Long term (current) use of aspirin
CPT/HCPCS: 20610; 73564; 99283; J0665; J3301; J3490

== ENCOUNTER 2024-06-07 07:50 | Day surgery (SDC) | payer MEDICARE ==
[~2024-06-07 07:50] MED LIST: Sodium Chloride 0.9% 10 ML Syringe FLUSH PRN; Sodium Chloride 0.9% 10 ML Syringe FLUSH SCH
[2024-06-07] MEDS: Lactated Ringers 1,000 ML IV SCH (08:20)
[2024-06-07] MEDS: Pregabalin 25 MG Cap PO SCH (08:50)
[2024-06-07] MEDS: oxyCODONE ER 10 MG TAB.ER PO SCH (08:50)
[2024-06-07] MEDS: Acetaminophen 325 MG Tab PO SCH (08:51)
[2024-06-07] MEDS ORDERED: Propofol 200 MG/20 ML SDV ONE ×2 (09:01)
[2024-06-07] MEDS ORDERED: EPINEPHrine 1 MG/ML SDV ONE (09:02)
[2024-06-07] MEDS ORDERED: fentaNYL 100 MCG/2 ML SDV ONE (09:02)
[2024-06-07] MEDS ORDERED: ceFAZolin 2 GM Vial ONE (09:03)
[2024-06-07] MEDS ORDERED: Ondansetron 4 MG/2 ML SDV ONE (09:04)
[2024-06-07] MEDS ORDERED: Ropivacaine 0.5% 5 MG/ML 30 ML SDV ONE (09:04)
[2024-06-07] MEDS ORDERED: Dexamethasone 4 MG/ML 5 ML MDV ONE (09:04)
[2024-06-07] MEDS ORDERED: dexmedeTOMIDine HCl 200 MCG/2 ML SDV ONE (09:04)
[2024-06-07] MEDS ORDERED: ceFAZolin 1 GM Vial ONE (09:36)
[2024-06-07] MEDS ORDERED: ePHEDrine 50 MG/ML SDV ONE (09:39)
[2024-06-07] MEDS ORDERED: oxyCODONE 5 MG Tab PO PRN (09:49)
[2024-06-07] MEDS ORDERED: Acetaminophen/HYDROcodone 325-5 MG Tab PO PRN (09:52)
[2024-06-07] MEDS: Morphine 8 MG, EPINEPHrine 0.3 MG, Cefuroxime 750 MG, Ketorolac 30 MG, Sodium Chloride ... PRN (10:25)
[2024-06-07] MEDS: VANCOmycin 1 GM SDV ONE (10:31)
[2024-06-07] MEDS: Tranexamic Acid 1,000 MG/10 ML Vial ONE (10:31)
[2024-06-07] MEDS: Bupivacaine 0.25% 10 ML SDV ONE (10:47)
[2024-06-07] MEDS ORDERED: Ondansetron 4 MG/2 ML SDV IVPUSH PRN (11:19)
[2024-06-07] MEDS ORDERED: HYDROmorphone 0.5 MG/0.5 ML Syringe IVPUSH PRN (11:19)
[2024-06-07] MEDS ORDERED: fentaNYL 100 MCG/2 ML SDV IVPUSH PRN (11:19)
[2024-06-07] MEDS: Triamcinolone Acetonide 40 MG/ML 1 ML SDV ONE (13:22)
[2024-06-07 14:55] VITALS: BP 130/82; PULSE 72
== END 2024-06-07 14:50 | disposition home or self-care (01) ==
LOC: JD.SDS 07:50
PROVIDERS: ATTEND Orthopaedic Surgery
DX: M17.0 Bilateral primary osteoarthritis of knee (principal); I10 Essential (primary) hypertension; I25.10 Atherosclerotic heart disease of native coronary artery without angina pectoris; K21.9 Gastro-esophageal reflux disease without esophagitis; E78.5 Hyperlipidemia, unspecified; E03.9 Hypothyroidism, unspecified; Z79.82 Long term (current) use of aspirin; Z79.890 Hormone replacement therapy; Z79.899 Other long term (current) drug therapy
CPT/HCPCS: 73560-26-RT; 73560-RT; 97116-GP; 97161-GP; A9270-GY; J0171; J0665; J0690; J0697; J1100; J1885; J2272; J2405; J2704; J2795; J3010; J3301; J3490; J7120